=== PATIENT | female | born 1935 | race Caucasian/White ===

== ENCOUNTER 2022-06-07 08:54 | Emergency (ER) | payer MEDICARE | END 2022-06-07 10:05 | disposition home or self-care (01) | LOC: NAV ERS 08:54 | DX: L03.011 Cellulitis of right finger (principal); E78.5 Hyperlipidemia, unspecified; I10 Essential (primary) hypertension; Z79.899 Other long term (current) drug therapy | CPT/HCPCS: 99283 ==

== ENCOUNTER 2022-10-18 03:52 | Emergency (ER) | payer MEDICARE ==
[2022-10-18] MEDS ORDERED: traMADol HCl 50 MG TAB ONE (04:33)
== END 2022-10-18 04:40 | disposition home or self-care (01) ==
LOC: NAV ERS 03:52
DX: K08.89 Other specified disorders of teeth and supporting structures (principal); E78.00 Pure hypercholesterolemia, unspecified; I10 Essential (primary) hypertension; Z87.891 Personal history of nicotine dependence; Z79.899 Other long term (current) drug therapy
CPT/HCPCS: 99282